=== PATIENT | female | born 1945 | race Caucasian/White ===

== ENCOUNTER → 2017-12-29 | Outpatient (CLI) | payer MEDICARE, MEDICAID ==
[~2017-12-29] MED LIST: AUGMENTIN 875875 M1; BIOTIN10 MG; CENTRUM SILVER1 EACH; CITRICAL; FEMARA2.5 MG; GLUCOSAMINE1000 MG; GRALISE600 MG; HERCEPTIN KIT440 M1; KEFLEX500 MG PO; OPTIFLEX-C400 MG
== END ==
LOC: M.RAD 10:57
DX: M47.816 Spondylosis without myelopathy or radiculopathy, lumbar region (principal); M41.86 Other forms of scoliosis, lumbar region; M11.261 Other chondrocalcinosis, right knee

== ENCOUNTER 2018-08-20 14:51 | Emergency (ER) | payer MEDICARE, MEDICAID ==
[~2018-08-20] VITALS: Ht 177.8 cm; Wt 65.8 kg
[2018-08-20] MEDS ORDERED: NORCO 5-325 TA1 EAC1 PO (16:17)
[2018-08-20 17:00] VITALS: BP 125/69
== END 2018-08-20 17:08 | disposition home or self-care (01) ==
LOC: M.ERS 14:51
DX: S59.292A Other physeal fracture of lower end of radius, left arm, initial encounter for closed fracture (principal); I95.9 Hypotension, unspecified; M54.9 Dorsalgia, unspecified; G89.29 Other chronic pain; M19.90 Unspecified osteoarthritis, unspecified site; Z85.3 Personal history of malignant neoplasm of breast; Z88.2 Allergy status to sulfonamides; Z90.10 Acquired absence of unspecified breast and nipple; Z87.442 Personal history of urinary calculi; Z90.89 Acquired absence of other organs; W00.0XXA Fall on same level due to ice and snow, initial encounter; Y92.89 Other specified places as the place of occurrence of the external cause; Y93.89 Activity, other specified; Y99.8 Other external cause status

== ENCOUNTER → 2019-04-29 | Outpatient (CLI) | payer MEDICARE, MEDICAID ==
[~2019-04-29] MED LIST changes: +NORCO 5-325 TA1 EAC1 PO
== END ==
LOC: M.ULTRA 09:40
DX: I70.0 Atherosclerosis of aorta (principal)